=== PATIENT | female | born 1965 | race Caucasian/White ===

== ENCOUNTER 2018-08-15 11:51 | Emergency (ER) | payer MEDICAID ==
[2018-08-15] MEDS ORDERED: Ketorolac 60 MG/2 ML SDV IM ONE (12:23)
--- NOTE | 2018-08-15 12:29 | EDM.PDOC ---
ED HPI GENERAL MEDICAL PROBLEM - General Chief Complaint: Headache Stated Complaint: MIGRAINE Time Seen by Provider: 08/15/18 12:24 Source of Information: Reports: Patient History Limitations: Reports: No Limitations - History of Present Illness INITIAL COMMENTS - FREE TEXT/NARRATIVE: Presents with right sided upper chest pain x 3-4 days, denies injury, but has been lifting granddaughter, worsens with right shoulder movement. This pain has now been radiating up into head since yesterday. Complains of right sided headache which is typical location for migraine, but is associated with right neck, right ear and right eye pain, which is atypical. Quality: Reports: Dull Severity: Moderate - Related Data Allergies Allergy/AdvReac Type Severity Reaction Status Date / Time No Known Allergies Allergy Verified 08/15/18 12:06 Home Meds: Home Meds .Verapamil 1 tab PO DAILY 08/15/18 [History] Levothyroxine [Synthroid] 88 mcg PO DAILY 08/15/18 [History] Past Medical History Cardiovascular History: Reports: None Neurological History: Reports: Migraines Endocrine/Metabolic History: Reports: Hypothyroidism Immunologic History: Reports: SLE - Past Surgical History Other Female Surgeries/Procedures: Bladder stimulator Social & Family History - Tobacco Use Smoking Status *Q: Former Smoker Tobacco Use Within Last Twelve Months: No ED ROS GENERAL - Review of Systems Review Of Systems: See Below Constitutional: Reports: No Symptoms HEENT: Reports: Ear Pain (right), Eye Pain (right). Denies: Vision Change Respiratory: Reports: No Symptoms Cardiovascular: Reports: Chest Pain (right upper) Endocrine: Reports: No Symptoms GI/Abdominal: Reports: Nausea. Denies: Vomiting : Reports: No Symptoms Musculoskeletal: Reports: Neck Pain (right) Skin: Reports: No Symptoms Neurological: Reports: Headache (right sided) Psychiatric: Reports: No Symptoms Hematologic/Lymphatic: Reports: No Symptoms Immunologic: Reports: No Symptoms - Physical Exam Exam: See Below Exam Limited By: No Limitations General Appearance: Alert, WD/WN, No Apparent Distress Eye Exam: Bilateral Eye: EOMI, PERRL Ears: Normal Canal, Normal TMs Nose: Normal Inspection Throat/Mouth: Normal Inspection Head Exam: Atraumatic, Normocephalic Neck: Supple Respiratory/Chest: No Respiratory Distress, Lungs Clear, Normal Breath Sounds Cardiovascular: Regular Rate, Rhythm, No Murmur GI/Abdominal: Soft Neuro Exam (Abbreviated): Alert, Normal Cognition, No Motor/Sensory Deficits Back Exam: Full Range of Motion Extremities: Normal Range of Motion Psychiatric: Normal Affect, Normal Mood Skin Exam: Warm, Dry, Intact EKG INTERPRETATION EKG Date: 08/15/18 Time: 12:26 Rhythm: NSR Rate (Beats/Min): 72 [place]: Normal P-Wave: Present QRS: Other (LPFB) ST-T: Normal QT: Normal EKG Interpretation Comments: No acute ischemia Course - Vital Signs Last Recorded V/S: Last Vital Signs Temp 36.4 C 08/15/18 11:55 Pulse 66 08/15/18 13:19 Resp 16 08/15/18 13:19 BP 152/95 H 08/15/18 13:19 Pulse Ox 100 08/15/18 13:19 - Orders/Labs/Meds Orders: Active Orders 24 hr Category Date Time Status EKG 12 Lead [EK] Stat Ther 08/15/18 12:23 Ordered Meds: Medications Discontinued Medications Generic Name Dose Route Start Last Admin Trade Name Ping PRN Reason Stop Dose Admin Ketorolac Tromethamine 60 mg 08/15/18 12:23 08/15/18 12:30 Toradol IM 08/15/18 12:24 60 mg ONETIME ONE Administration Sumatriptan Succinate 6 mg 08/15/18 12:55 08/15/18 12:59 Imitrex SUBCUT 08/15/18 12:56 6 mg ONETIME ONE Administration - Re-Assessments/Exams Free Text/Narrative Re-Assessment/Exam: 08/15/18 12:50 Chest pain resolved after Toradol 60mg IM, headache persists. 08/15/18 13:25 Headache resolved after Imitrex 6mg SQ. Patient is pain-free. Departure - Departure Time of Disposition: 13:28 Disposition: Home, Self-Care 01 Condition: Good Clinical Impression: Chest wall muscle strain Qualifiers: Encounter type: initial encounter Qualified Code(s): S29.011A - Strain of muscle and tendon of front wall of thorax, initial encounter Migraine Qualifiers: Migraine type: unspecified Status migrainosus presence: without status migrainosus Intractability: not intractable Qualified Code(s): G43.909 - Migraine, unspecified, not intractable, without status migrainosus - Discharge Information *PRESCRIPTION DRUG MONITORING PROGRAM REVIEWED*: No *COPY OF PRESCRIPTION DRUG MONITORING REPORT IN PATIENT CHER: Not Applicable Instructions: Muscle Strain, Migraine Headache, [id number] Referrals: PCP,Not In Area [Primary Care Provider] - Forms: ED Department Discharge Additional Instructions: Take OTC Ibuprofen as needed. Avoid lifting. Rest, oral fluids. Follow up as needed. Return to the ER as needed. - My Orders Last 24 Hours: My Active Orders 08/15/18 12:23 EKG 12 Lead [EK] Stat - Assessment/Plan Last 24 Hours: My Active Orders 08/15/18 12:23 EKG 12 Lead [EK] Stat
[2018-08-15] MEDS ORDERED: SUMAtriptan 6 MG/0.5 ML SDV SUBCUT ONE (12:55)
== END 2018-08-15 13:35 | disposition home or self-care (01) ==
LOC: FB.ED 11:51
DX: S29.011A Strain of muscle and tendon of front wall of thorax, initial encounter (principal); G43.909 Migraine, unspecified, not intractable, without status migrainosus; X50.9XXA Other and unspecified overexertion or strenuous movements or postures, initial encounter
CPT/HCPCS: 93005; 96372; 99283; J1885; J3030